=== PATIENT | male | born 1945 | race Caucasian/White ===

== ENCOUNTER → 2021-06-02 | Outpatient (CLI) | payer MEDICARE, OTHER ==
[2021-06-02 20:30] LABS: Basophils # (A) 0.05 X 10*3/uL (0.00-0.10); Basophils % (A) 0.7 %; Eosinophils # (A) 0.29 X 10*3/uL (0.04-0.35); Eosinophils % (A) 3.8 %; HCT 40.4 % (39.6-50.0); HGB 13.3 g/dL (13.0-17.0); Lymphocytes # (A) 2.23 X 10*3/uL (0.90-5.00); Lymphocytes % (A) 29.5 %; MCH 29.9 pg (27.0-32.0); MCHC 32.9 g/dL (32.0-37.0); MCV 90.8 fL (80.0-97.0); Mean Platelet Volume 10.2 fL (9.5-12.2); Monocytes # (A) 0.62 X 10*3/uL (0.20-1.00); Monocytes % (A) 8.2 %; Neutrophils # (A) 4.36 X 10*3/uL (1.80-7.70); Neutrophils % (A) 57.5 %; Platelet Count 224 X 10*3/uL (140-440); RBC 4.45 X 10*6/uL (4.40-5.60); RDW 12.2 % (11.5-14.5); WBC 7.57 X 10*3/uL (4.50-10.00)
[2021-06-02 20:33] LABS: African American GFR (CKD) 76.8 (60.0-200.0); Albumin 4.5 g/dL (3.8-4.9); Albumin/Globulin Ratio 1.96 (1.60-3.17); Anion Gap 10.5 mmol/L (4.00-12.00); BUN/Creat Ratio 22.82 Ratio (12.00-20.00); Blood Urea Nitrogen 25.1 mg/dL (9.0-27.0); Calcium 9.5 mg/dL (8.7-10.3); Carbon Dioxide 25.5 mmol/L (21.6-31.8); Chol/HDL Ratio 2.92 Ratio; Globulin 2.3 g/dL (1.6-3.3); HDL Cholesterol 50.3 mg/dL (40.00-60.00); LDL Cholesterol,Calculated 77.1 mg/dL (0.0-131.0); Non-African American GFR(CKD) 66.2 (60.0-200.0); Potassium 4.2 mmol/L (3.5-5.5); Total Bilirubin 0.4 mg/dL (0.30-1.20); Total Protein 6.8 g/dL (6.2-8.2); Triglycerides 97.8 mg/dL (0.00-149.00); VLDL Calculation 19.56 mg/dL (5.00-40.00)
== END | disposition home or self-care (01) ==
LOC: LABWHC1 08:12
PROVIDERS: ATTEND Family Medicine
DX: E78.5 Hyperlipidemia, unspecified (principal)
CPT/HCPCS: 36415; 80053; 80061; 82550; 83036; 85025

== ENCOUNTER → 2023-10-04 | Outpatient (CLI) | payer MEDICARE, OTHER ==
--- NOTE | 2023-10-04 16:57 | US ---
EXAMINATION TYPE: US prostate transrectal DATE OF EXAM: 10/04/2023 COMPARISON: NONE CLINICAL INDICATION: Male, 78 years old with history of R97.20 ELEVATED PROSTATE ANTIGEN; slow flow, elevated labs per patient This examination was performed using the transrectal probe. EXAM MEASUREMENTS: Gland Size: 5.4 x 6.3 x 4.9 Volume: 87.1ml Predicted PSA: 10.46 Actual PSA (if available):11.6, November 2022 3.1 Enlarged heterogeneous gland with no focal lesion seen IMPRESSION: 1. No suspicious lesions. Note that MRI is more sensitive for detection of clinically significant pr ostate adenocarcinoma. 2. Prostatomegaly. Predicted PSA = volume x 0.12 ng/ml Calculated Volume = 0.5236 x L x W x H
== END | disposition home or self-care (01) ==
LOC: RADUSWWP 06:55
PROVIDERS: ATTEND Family Medicine
DX: C61 Malignant neoplasm of prostate (principal); N40.0 Benign prostatic hyperplasia without lower urinary tract symptoms; R97.20 Elevated prostate specific antigen [PSA]
CPT/HCPCS: 76872